=== PATIENT | male | born 1935 | race Two or more races ===

== ENCOUNTER 2016-10-02 03:33 | Inpatient (IN) | payer MEDICARE ==
[~2016-10-02] VITALS: Ht 177.8 cm; Wt 68.9 kg
[2016-10-02 05:00] VITALS: BP 144/85
[2016-10-02] MEDS ORDERED: MAGNESIUM HYDROXIDE 30 ML UDC PO PRN (05:00)
[2016-10-02] MEDS ORDERED: ACETAMINOPHEN 325 MG TABLET PO PRN (05:00)
[2016-10-02] MEDS ORDERED: MAG HYDROX/AL HYDROX/SIMETH 30 ML UDC PO PRN (05:00)
[2016-10-02] MEDS ORDERED: QUET25TA PO (05:51)
[2016-10-02] MEDS ORDERED: TRAZ-147 PO (05:51)
[2016-10-02] MEDS ORDERED: TIMO10DR31 EACHEYE (05:51)
[2016-10-02] MEDS ORDERED: WARF2TAB57 PO (05:51)
[2016-10-02] MEDS ORDERED: LISI-656 PO (05:51)
[2016-10-02] MEDS ORDERED: MEMA28CA PO (05:51)
[2016-10-02] MEDS ORDERED: LEVO25TA7 PO (05:51)
[2016-10-02 08:00] LABS: INR 1.57 (0.87-1.13); PROTHROMBIN TIME 17.3 SECS (9.5-12.7)
[2016-10-02 08:38] LABS: ALBUMIN 3.2 g/dL (3.4-5.0); BILIRUBIN,TOTAL 0.6 mg/dL (0.2-1.0); CALCIUM, SERUM 8.7 mg/dL (8.5-10.1); CREATININE 1.9 mg/dL (0.6-1.3); POTASSIUM 4.1 mmol/L (3.5-5.1); TOTAL PROTEIN, SERUM 6.8 g/dL (6.4-8.2)
[2016-10-02 08:41] VITALS: BP 128/76
[2016-10-02] MEDS ORDERED: OLANZAPINE 10 MG VIAL IM STA (10:04)
[2016-10-02] MEDS ORDERED: LORAZEPAM INJ 2 MG/ML VIAL IV STA (10:07)
--- NOTE | 2016-10-02 10:20 | NUR ---
GPS RN NOTE: PATIENT IN THE HALLWAY NEXT TO NURSING STATION YELLING, SCREAMING THREATENING AGITATED COMBATIVE THROUGH THE STAFF AND PT TRYING TO OPEN DOOR AND LEAVE THE UNIT UNABLE TO CONTROL THE BEHAVIOR AT THIS TIME .CONTACT DR. ARAIZA FOR ORDERS ZYPREXA 5MG IM ONCE AND ATIVAN 1 MG IM ONCE ORDERS PLACED AND CARRIED OUT.VS STABLE WILL CONTINUE TO MONITOR FOR SAFETY BEHAVIOR .
[2016-10-02] MEDS: DIVALPROEX SODIUM 125 MG CAP.SPRINK PO SCH ×2 (13:34→21:20)
[2016-10-02] MEDS: OLANZAPINE 5 MG/TAB.RAPDIS PO SCH ×2 (13:34→16:45)
--- NOTE | 2016-10-02 16:35 | NUR ---
Initial Discharge Plan: [place] [address] [place] [address]. / . SW spoke to patient's who requested that patient be placed at [address] [address]. . Patient's Dawna stated that she has been in contact with Vanessa (phone: [phone]/ ) from the facility. ANDER will follow-up with the facility. SW will follow-up with MD and family regarding most appropriate discharge. SW will help form a safe and proper discharge.
[2016-10-02] MEDS: WARFARIN SODIUM 2 MG TABLET PO SCH (16:48)
[2016-10-02] MEDS: TIMOLOL 0.5% SOLN OPHTH 5 ML BOTTLE EACHEYE SCH (16:55)
[2016-10-02 16:56] VITALS: BP 114/79
[2016-10-02 20:40] VITALS: BP 138/92
[2016-10-03 07:31] LABS: BASOPHILS % (AUTO) 0.2 % (0.0-2.0); EOSINOPHILS # (AUTO) 0.1 /CMM (0.0-0.7); EOSINOPHILS % (AUTO) 1.6 % (0.0-6.0); HEMATOCRIT 43 % (39-51); HEMOGLOBIN 14.2 g/dL (13.5-17.5); LYMPHOCYTES # (AUTO) 2.2 /CMM (0.8-4.8); LYMPHOCYTES % (AUTO) 28.7 % (20.0-44.0); MEAN CORPUSCULAR HEMOGLOBIN 33 PG (26.0-33.0); MEAN CORPUSCULAR HGB CONC 33 g/dl (31.0-36.0); MEAN CORPUSCULAR VOLUME 97 fL (80-96); MONOCYTES # (AUTO) 0.6 /CMM (0.1-1.30); MONOCYTES % (AUTO) 7.6 % (2.0-12.0); NEUTROPHILS # (AUTO) 4.7 /CMM (1.8-8.9); NEUTROPHILS % (AUTO) 61.9 % (43.0-81.0); PLATELET COUNT (AUTO) 229 /CMM (150-450); RED BLOOD CELL COUNT(AUTO) 4.36 MIL/uL (4.5-6.0); WHITE BLOOD COUNT (AUTO) 7.6 K/uL (4.3-11.0)
[2016-10-03 07:42] LABS: CALCIUM, SERUM 8.8 mg/dL (8.5-10.1); POTASSIUM 4.1 mmol/L (3.5-5.1)
[2016-10-03 08:00] VITALS: BP 123/76
--- NOTE | 2016-10-03 08:05 | NUR ---
Psychosocial assessment was reviewed and I concur with the information provided. No changes are necessary. Tino Matias, HAUNT[employer]ORY [employer]IDE [id number] Addendum: 10/03/16 at 0806 by TINO MATIAS SW Amended: Links added.
[2016-10-03] MEDS: DIVALPROEX SODIUM 125 MG CAP.SPRINK PO SCH ×2 (08:23→20:35)
[2016-10-03] MEDS: OLANZAPINE 5 MG/TAB.RAPDIS PO SCH ×2 (08:23→17:09)
[2016-10-03] MEDS: LEVOTHYROXINE SODIUM 25 MCG TABLET PO SCH (08:23)
[2016-10-03] MEDS: LISINOPRIL (5MG) 5 MG TABLET PO SCH (08:24)
[2016-10-03] MEDS: TIMOLOL 0.5% SOLN OPHTH 5 ML BOTTLE EACHEYE SCH ×2 (08:25→17:09)
[2016-10-03 12:09] LABS: INR 1.94 (0.87-1.13); PROTHROMBIN TIME 21.7 SECS (9.5-12.7)
--- NOTE | 2016-10-03 12:19 | NUR ---
ANDER confirmed with Anusha from [facility] ([address] [place] [id number] ) that resident is accepted. Notified her that we will send physicians report prior to discharge.
[2016-10-03 16:00] VITALS: BP 100/58
[2016-10-03] MEDS: WARFARIN SODIUM 2 MG TABLET PO SCH (17:11)
[2016-10-03 20:10] VITALS: BP 157/87
[2016-10-04 07:12] LABS: BASOPHILS % (AUTO) 0.4 % (0.0-2.0); EOSINOPHILS # (AUTO) 0.2 /CMM (0.0-0.7); EOSINOPHILS % (AUTO) 2.8 % (0.0-6.0); HEMATOCRIT 44 % (39-51); HEMOGLOBIN 14.9 g/dL (13.5-17.5); LYMPHOCYTES # (AUTO) 2.4 /CMM (0.8-4.8); LYMPHOCYTES % (AUTO) 30.3 % (20.0-44.0); MEAN CORPUSCULAR HEMOGLOBIN 33 PG (26.0-33.0); MEAN CORPUSCULAR HGB CONC 34 g/dl (31.0-36.0); MEAN CORPUSCULAR VOLUME 97 fL (80-96); MONOCYTES # (AUTO) 0.5 /CMM (0.1-1.30); MONOCYTES % (AUTO) 6.9 % (2.0-12.0); NEUTROPHILS # (AUTO) 4.7 /CMM (1.8-8.9); NEUTROPHILS % (AUTO) 59.6 % (43.0-81.0); PLATELET COUNT (AUTO) 230 /CMM (150-450); RED BLOOD CELL COUNT(AUTO) 4.57 MIL/uL (4.5-6.0); WHITE BLOOD COUNT (AUTO) 7.9 K/uL (4.3-11.0)
[2016-10-04 07:27] LABS: ALBUMIN 3.3 g/dL (3.4-5.0); BILIRUBIN,TOTAL 0.7 mg/dL (0.2-1.0); CALCIUM, SERUM 8.9 mg/dL (8.5-10.1); MAGNESIUM 2.2 mg/dL (1.8-2.4); PHOSPHORUS 3.4 mg/dL (2.5-4.9)
[2016-10-04 08:00] VITALS: BP 120/82
[2016-10-04] MEDS: DIVALPROEX SODIUM 125 MG CAP.SPRINK PO SCH ×2 (08:08→20:26)
[2016-10-04] MEDS: LISINOPRIL (5MG) 5 MG TABLET PO SCH (08:08)
[2016-10-04] MEDS: LEVOTHYROXINE SODIUM 25 MCG TABLET PO SCH (08:08)
[2016-10-04] MEDS: OLANZAPINE 5 MG/TAB.RAPDIS PO SCH ×2 (08:09→17:52)
[2016-10-04] MEDS: TIMOLOL 0.5% SOLN OPHTH 5 ML BOTTLE EACHEYE SCH ×2 (08:11→17:52)
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
[2016-10-04 13:12] LABS: APPEARANCE,URINE CLEAR (CLEAR); BILIRUBIN,URINE NEGATIVE (NEGATIVE); BLOOD, URINE NEGATIVE Ery/uL (NEGATIVE); COLOR,URINE YELLOW (YELLOW); KETONES,URINE NEGATIVE (NEGATIVE); LEUKOCYTE ESTERASE ,URINE NEGATIVE (NEGATIVE); NITRITE, URINE NEGATIVE (NEGATIVE); PROTEIN,URINE NEGATIVE (NEGATIVE); UGLUCOSE TRACE mg/dL (NEGATIVE); UROBILINOGEN,URINE 0.2 EU/dL (0.2)
[2016-10-04 13:23] LABS: ADD URINE CULTURE NO; BACTERIA,URINE None seen /HPF (None Seen); RBC,URINE NONE SEEN /HPF (0-2); SQUAMOUS EPITHELIAL CELL,UR Few /HPF (None Seen); WBC,URINE NONE SEEN /HPF (0-3)
[2016-10-04 13:43] LABS: CREATININE, URINE 97.5 MG/DL (30.0-125.0); URINE TOTAL PROTEIN 13.9 mg/dL (0-11.9)
[2016-10-04 13:51] LABS: EOSINOPHIL,URINE None Seen
[2016-10-04 16:10] VITALS: BP 127/66
--- NOTE | 2016-10-04 16:30 | NUR ---
RN NOTES GAVE PATIENT COPY OF 5250 HOLD. INFORMED OF PURPOSE AND WHAT THIS IS. PATIENT AGITATED STATING HE WILL WALK OUT NOW. BUT THEN WENT AND LAID ON BED. PATIENT CALM AT THIS TIME
[2016-10-04 17:49] LABS: INR 3.07 (0.87-1.13); PROTHROMBIN TIME 35.3 SECS (9.5-12.7)
[2016-10-04] MEDS: WARFARIN SODIUM 2 MG TABLET PO SCH (17:55)
[2016-10-04 20:00] VITALS: BP 139/78
[2016-10-04] MEDS: TEMAZEPAM 7.5 MG CAPSULE PO PRN (22:20)
[2016-10-05 08:00] VITALS: BP 103/89
[2016-10-05] MEDS: TIMOLOL 0.5% SOLN OPHTH 5 ML BOTTLE EACHEYE SCH ×2 (08:26→16:39)
[2016-10-05] MEDS: LEVOTHYROXINE SODIUM 25 MCG TABLET PO SCH (08:27)
[2016-10-05] MEDS: DIVALPROEX SODIUM 125 MG CAP.SPRINK PO SCH ×2 (08:27→21:36)
[2016-10-05] MEDS: OLANZAPINE 5 MG/TAB.RAPDIS PO SCH ×2 (08:27→16:39)
[2016-10-05 08:28] VITALS: BP 103/89
[2016-10-05] MEDS: LISINOPRIL (5MG) 5 MG TABLET PO SCH (08:28)
[2016-10-05 10:13] LABS: INR 2.79 (0.87-1.13); PROTHROMBIN TIME 31.9 SECS (9.5-12.7)
--- NOTE | 2016-10-05 11:12 | NUR ---
DR. LYONS MADE AWARE THAT PT IS 31.9 AND INR IS 2.79 AND SAID TO CONTINUE SAME DOSE OF COUMADIN 2 MG PO.
--- NOTE | 2016-10-05 16:15 | NUR ---
ANDER faxed (physicians report, psych H&P, Med H&P, progress note) to Vanessa [facility]ett (fax: [phone]/ ) from [address] [address]. ANDER will follow up.
[2016-10-05] MEDS: WARFARIN SODIUM 2 MG TABLET PO SCH (16:41)
[2016-10-05 16:49] VITALS: BP 136/76
[2016-10-05 20:28] VITALS: BP 143/70
[2016-10-05] MEDS: TEMAZEPAM 7.5 MG CAPSULE PO PRN (22:10)
[2016-10-06 08:46] VITALS: BP 120/81
[2016-10-06 09:04] LABS: INR 2.72 (0.87-1.13)
[2016-10-06] MEDS: LEVOTHYROXINE SODIUM 25 MCG TABLET PO SCH (09:37)
[2016-10-06] MEDS: DIVALPROEX SODIUM 125 MG CAP.SPRINK PO SCH ×2 (09:37→21:22)
[2016-10-06] MEDS: LISINOPRIL (5MG) 5 MG TABLET PO SCH (09:38)
[2016-10-06] MEDS: TIMOLOL 0.5% SOLN OPHTH 5 ML BOTTLE EACHEYE SCH ×2 (09:38→17:36)
[2016-10-06] MEDS: OLANZAPINE 5 MG/TAB.RAPDIS PO SCH ×2 (09:38→17:36)
--- NOTE | 2016-10-06 13:30 | NUR ---
FAMILY IN TO VISIT,GIVEN STATUS REPORT.PT. A LITTLE AGITATED WITH FAMILY.
[2016-10-06 16:13] VITALS: BP 109/68
[2016-10-06] MEDS: WARFARIN SODIUM 2 MG TABLET PO SCH (17:38)
[2016-10-06 20:00] VITALS: BP 120/79
[2016-10-06] MEDS: TEMAZEPAM 7.5 MG CAPSULE PO PRN (21:49)
[2016-10-06] MEDS: LORAZEPAM 0.5 MG TABLET PO PRN (23:56)
[2016-10-07 07:18] LABS: BASOPHILS % (AUTO) 0.6 % (0.0-2.0); EOSINOPHILS # (AUTO) 0.3 /CMM (0.0-0.7); EOSINOPHILS % (AUTO) 4.3 % (0.0-6.0); HEMATOCRIT 43 % (39-51); HEMOGLOBIN 14.1 g/dL (13.5-17.5); LYMPHOCYTES # (AUTO) 2.5 /CMM (0.8-4.8); LYMPHOCYTES % (AUTO) 38.6 % (20.0-44.0); MEAN CORPUSCULAR HEMOGLOBIN 32 PG (26.0-33.0); MEAN CORPUSCULAR HGB CONC 33 g/dl (31.0-36.0); MEAN CORPUSCULAR VOLUME 97 fL (80-96); MONOCYTES # (AUTO) 0.5 /CMM (0.1-1.30); MONOCYTES % (AUTO) 7.2 % (2.0-12.0); NEUTROPHILS # (AUTO) 3.2 /CMM (1.8-8.9); NEUTROPHILS % (AUTO) 49.3 % (43.0-81.0); PLATELET COUNT (AUTO) 197 /CMM (150-450); RDW COEFFICIENT OF VARIATION 14.2 (11.5-15.0); RED BLOOD CELL COUNT(AUTO) 4.38 MIL/uL (4.5-6.0); WHITE BLOOD COUNT (AUTO) 6.5 K/uL (4.3-11.0)
[2016-10-07 07:22] LABS: CALCIUM, SERUM 8.3 mg/dL (8.5-10.1); CREATININE 1.7 mg/dL (0.6-1.3); PHOSPHORUS 3.9 mg/dL (2.5-4.9); POTASSIUM 4.1 mmol/L (3.5-5.1)
[2016-10-07 08:30] VITALS: BP 121/60
[2016-10-07 08:50] LABS: INR 2.49 (0.87-1.13); PROTHROMBIN TIME 28.2 SECS (9.5-12.7)
[2016-10-07] MEDS: LEVOTHYROXINE SODIUM 25 MCG TABLET PO SCH (08:52)
[2016-10-07] MEDS: DIVALPROEX SODIUM 125 MG CAP.SPRINK PO SCH ×2 (08:52→21:33)
[2016-10-07] MEDS: OLANZAPINE 5 MG/TAB.RAPDIS PO SCH ×2 (08:52→16:41)
[2016-10-07] MEDS: LISINOPRIL (5MG) 5 MG TABLET PO SCH (08:53)
[2016-10-07] MEDS: TIMOLOL 0.5% SOLN OPHTH 5 ML BOTTLE EACHEYE SCH ×2 (08:54→16:44)
--- NOTE | 2016-10-07 10:55 | NUR ---
Received pt. awake in bed, quiet, responsive to staffs, no sign of distress and no agitation noted. Will continue to monitor for safety.
--- NOTE | 2016-10-07 11:00 | NUR ---
Dr. Arriola notified about the PT of 28.2 and INR 2.49 and said continue same dose of Coumadin 2 mg.
[2016-10-07 16:00] VITALS: BP 128/64
[2016-10-07] MEDS: WARFARIN SODIUM 2 MG TABLET PO SCH (16:42)
[2016-10-07 20:26] VITALS: BP 118/58
[2016-10-07] MEDS: TEMAZEPAM 7.5 MG CAPSULE PO PRN (21:33)
[2016-10-08 07:54] LABS: INR 2.31 (0.87-1.13); PROTHROMBIN TIME 26.1 SECS (9.5-12.7)
[2016-10-08] MEDS: DIVALPROEX SODIUM 125 MG CAP.SPRINK PO SCH ×2 (08:19→21:38)
[2016-10-08] MEDS: LEVOTHYROXINE SODIUM 25 MCG TABLET PO SCH (08:19)
[2016-10-08] MEDS: OLANZAPINE 5 MG/TAB.RAPDIS PO SCH ×2 (08:19→16:43)
[2016-10-08] MEDS: LISINOPRIL (5MG) 5 MG TABLET PO SCH (08:19)
[2016-10-08] MEDS: TIMOLOL 0.5% SOLN OPHTH 5 ML BOTTLE EACHEYE SCH ×2 (08:22→16:46)
[2016-10-08 08:41] VITALS: BP 129/74
[2016-10-08 15:54] LABS: *SPE A/G RATIO 1.2 (0.7-1.7); *SPE ALBUMIN 3.6 g/dL (2.9-4.4); *SPE ALPHA-1-GLOBULIN 0.2 g/dL (0.0-0.4); *SPE ALPHA-2-GLOBULIN 0.5 g/dL (0.4-1.0); *SPE BETA GLOBULIN 0.8 g/dL (0.7-1.3); *SPE GLOBULIN, TOTAL 2.9 g/dL (2.2-3.9); *SPE M-SPIKE 0.2 g/dL (Not Observed); *SPE PROTEIN TOTAL 6.5 g/dL (6.0-8.5); *SPEGAMMA GLOBULIN 1.5 g/dL (0.4-1.8)
[2016-10-08 16:00] VITALS: BP 145/70
[2016-10-08] MEDS: WARFARIN SODIUM 2 MG TABLET PO SCH (16:44)
[2016-10-08 19:54] VITALS: BP 145/71
[2016-10-08] MEDS: TEMAZEPAM 7.5 MG CAPSULE PO PRN (21:39)
[2016-10-09 04:08] LABS: VIT D, 25-HYDROXY 43.9 ng/mL (30.0-100.0)
[2016-10-09 07:35] LABS: INR 2.3 (0.87-1.13); PROTHROMBIN TIME 25.9 SECS (9.5-12.7)
[2016-10-09 08:00] VITALS: BP 138/74
[2016-10-09] MEDS: DIVALPROEX SODIUM 125 MG CAP.SPRINK PO SCH ×2 (08:17→20:17)
[2016-10-09] MEDS: LEVOTHYROXINE SODIUM 25 MCG TABLET PO SCH (08:17)
[2016-10-09] MEDS: OLANZAPINE 5 MG/TAB.RAPDIS PO SCH ×2 (08:18→18:01)
[2016-10-09] MEDS: LORAZEPAM 0.5 MG TABLET PO PRN (08:18)
[2016-10-09] MEDS: LISINOPRIL (5MG) 5 MG TABLET PO SCH (08:18)
[2016-10-09] MEDS: TIMOLOL 0.5% SOLN OPHTH 5 ML BOTTLE EACHEYE SCH ×2 (08:20→18:00)
[2016-10-09 11:18] LABS: CALCITRIOL VIT D,1, 25 DIHYDRO 30.4 pg/mL (19.9-79.3)
--- NOTE | 2016-10-09 14:35 | NUR ---
[id number]: GAVE ATIVAN 0.5 MG PO DUE TO ANXIETY UPON PT REQUEST UPON PT REQUEST AND WILL CONTINUE TO MONITOR FOR EFFECTIVENESS OF MEDICATION
[2016-10-09 16:00] VITALS: BP 132/68
[2016-10-09] MEDS: WARFARIN SODIUM 2 MG TABLET PO SCH (18:04)
[2016-10-09 20:34] VITALS: BP 167/84
[2016-10-10 07:10] LABS: INR 2.08 (0.87-1.13); PROTHROMBIN TIME 23.3 SECS (9.5-12.7)
[2016-10-10] MEDS: LEVOTHYROXINE SODIUM 25 MCG TABLET PO SCH (08:10)
[2016-10-10] MEDS: DIVALPROEX SODIUM 125 MG CAP.SPRINK PO SCH (08:11)
[2016-10-10] MEDS: OLANZAPINE 5 MG/TAB.RAPDIS PO SCH (08:11)
[2016-10-10] MEDS: LISINOPRIL (5MG) 5 MG TABLET PO SCH (08:11)
[2016-10-10] MEDS: TIMOLOL 0.5% SOLN OPHTH 5 ML BOTTLE EACHEYE SCH (08:12)
[2016-10-10 08:50] VITALS: BP 115/70
--- NOTE | 2016-10-10 11:00 | NUR ---
[id number]: PT IS 81 YEARS OLD MALE DISCHARGE TO [address] [id number] IN STABLE CONDITION. COMPLAINT WITH MEDICATIONS, COOPERATIVE WITH TREATMENT PLANS. PT DENIES SI/HI/AVH. BEHAVIOR IMPROVED, PSYCHIATRIC TX PLANS MET, MEDICAL TX PLANS DEFERRED FOR CONTINUAL MONITORING. EDUCATED PY ABOUT AFTER CARE PLAN AND COPY PROVIDED. RETURN PERSONAL BELONGINGS TO PT. MEDICATIONS RECONCILED WITH DR. OLEA AND DR. ARAIZA. REPORT GIVEN TO SON AND NAMED ONEAL. PT SIGNED DISCHARGE PAPERWORK. SKIN ASSESSMENT DONE. PT LEFT ACCOMPANIED BY SON AND NAMED ONEAL VIA PRIVATE CAR.
--- NOTE | 2016-10-10 13:49 | NUR ---
Discharge Note: Patient was discharged to [address] [address] [phone]. Patient's Dawna Patten / ([phone]) was notified and picked up the patient with son in a private vehicle. Patient did not appear to have any distress upon discharge and denied S/H ideations and V/A hallucinations. Facilitated info to IDT team who are in agreement with discharge arrangement. The multidisciplinary exitcare form was done, printed, signed, and given to the patient.
== END 2016-10-10 11:00 | DRG 885 ==
LOC: GPS 04:45
PROVIDERS: ADMIT Psychiatry & Neurology Psychiatry; ATTEND Family Medicine
DX: F25.9 Schizoaffective disorder, unspecified (principal); N18.9 Chronic kidney disease, unspecified; D68.59 Other primary thrombophilia; F23 Brief psychotic disorder; E03.9 Hypothyroidism, unspecified; F03.90 Unspecified dementia, unspecified severity, without behavioral disturbance, psychotic disturbance, mood disturbance, and anxiety; G47.00 Insomnia, unspecified; I48.2 Chronic atrial fibrillation; Z79.01 Long term (current) use of anticoagulants; I12.9 Hypertensive chronic kidney disease with stage 1 through stage 4 chronic kidney disease, or unspecified chronic kidney disease
CPT/HCPCS: 36415; 71010-TC; 80048-TC; 80053-TC; 80061-TC; 80164-TC; 81000-TC; 82306; 82550-TC; 82570-TC; 82652; 83735-TC; 83970; 84100-TC; 84155; 84155-TC; 84165; 84300-TC; 85025-TC; 85610-TC; 87081-TC; J2060; J3490